=== PATIENT | female | born 1960 | race Caucasian/White ===

== ENCOUNTER → 2018-09-11 | Outpatient (CLI) | payer OTHER ==
--- NOTE | 2018-09-11 14:49 | NUR ---
MBSS COMPLETED. -S/S OF ASPIRATION. RECOMMEND REGULAR TEXTURE, THIN LIQUIDS;PILLS WHOLE WITH LIQUIDS. GI CONSULT. PATIENT INFORMATION: Pt IS A 58 YEAR OLD FEMALE REFERRED FOR AN MBSS SECONDARY TO RECENT CHOKING EPISODE. PT REPORTS THAT SHE HAD A CHOKING EPISODE IN JUNE THAT WAS FOLLOWED BY CO. PT REPORTS THAT SHE HAD SINCE HAD ANOTHER EPISODE WITH ALMONDS. PT REPORTS NO OTHER MEDICAL HISTORY. MBSS INTERPRETATION: SWALLOW FUNCTION AND EFFICIENCY WITHIN FUNCTIONAL LIMITS. ORAL MOTOR STRENGTH, COORDINATION, AND ROM WITHIN FUNCTIONAL LIMITS. LARYNGEAL ELEVATION/EXCURSION STRONG WITH TIMELY PHARYNGEAL RESPONSE. NO OVERT SIGNS OR SYMPTOMS OF ASPIRATION PRESENT DURING MBSS. TRIALS: TRIAL #1: TSP PUREED: GOOD TRIAL #2: TSP PUDDING: GOOD TRIAL #3: TSP MIXED: GOOD TRIAL #4: COOKIE: GOOD TRIAL #5: CUP SIP THIN LIQUIDS: GOOD TRIAL #6: CUP SIP THIN LIQUIDS: GOOD RECOMMENDATIONS: 1. REGULAR TEXTURE, THIN LIQUIDS; PILLS WHILE WITH LIQUIDS. 2. COMPENSATORY STRATEGIES (PROPHYLAXIS): *SEATED AT 90 *AVOID SCATTERED FOODS G-CODES SWALLOWING: [id number] Addendum: 09/11/18 at 1457 by JOSIAH LUIS [facility] Amended: Links added.
== END | disposition home or self-care (01) ==
LOC: RAH 09:34
PROVIDERS: ATTEND Nurse Practitioner Family
DX: R13.10 Dysphagia, unspecified (principal)
CPT/HCPCS: 74230; 92611

== ENCOUNTER 2023-02-07 15:45 | Emergency (ER) | payer OTHER ==
[~2023-02-07] VITALS: Ht 165.1 cm; Wt 58.1 kg
[2023-02-07 18:53] LABS: BASOPHILS # (AUTO) 0.02 K/uL (0.00-0.20); BASOPHILS % (AUTO) 0.5 % (0.0-5.0); EOSINOPHILS # (AUTO) 0.07 K/uL (0.00-0.70); EOSINOPHILS % (AUTO) 1.9 % (0.0-8.0); HEMATOCRIT 34.9 % (36-48); LYMPHOCYTES # (AUTO) 1.5 K/uL (1.0-4.8); MEAN CORPUSCULAR HEMOGLOBIN 32.7 pg (27.0-33.0); MEAN CORPUSCULAR HGB CONC 34.7 g/dL (32.0-36.0); MEAN CORPUSCULAR VOLUME 94.3 fL (79-99); MONOCYTES # (AUTO) 0.4 K/uL (0.1-1.0); MONOCYTES % (AUTO) 10.6 % (3.0-13.0); NEUTROPHILS # (AUTO) 1.7 K/uL (1.8-7.7); PLATELET COUNT (AUTO) 216 K/uL (130-400); RED CELL DISTRIBUTION WIDTH 12.4 % (11.0-15.5); WHITE BLOOD COUNT (AUTO) 3.8 K/uL (4.8-10.8)
[2023-02-07 18:59] LABS: APPEARANCE,URINE CLEAR (CLEAR); BILIRUBIN,URINE NEGATIVE (NEGATIVE); COLOR,URINE LIGHT-YELLOW (YELLOW); GLUCOSE, URINE (UA) NEGATIVE (NEGATIVE); KETONES,URINE NEGATIVE (NEGATIVE); LEUKOCYTE ESTERASE ,URINE NEGATIVE Leu/uL (NEGATIVE); NITRATE,URINE NEGATIVE (NEGATIVE); OCCULT BLOOD,URINE NEGATIVE (NEGATIVE); PH,URINE 6.5 (5.0-8.0); PROTEIN,URINE NEGATIVE (NEGATIVE); UROBILINOGEN,URINE 0.2 mg/dL (0.2-1.0)
[2023-02-07 19:03] LABS: CREATININE 0.9 mg/dL (0.5-1.5); POTASSIUM 3.9 mmol/L (3.5-5.1)
[2023-02-07] MEDS ORDERED: IOHEXOL-350 75 ML VIAL IV ONE (19:29)
[2023-02-07 19:31] LABS: ADD UA MICROSCOPIC NO
[2023-02-07 20:44] VITALS: BP 129/73; PULSE 62; RESP 18; O2SAT 98
== END 2023-02-07 20:44 | disposition home or self-care (01) ==
LOC: EDH 15:45
DX: K40.90 Unilateral inguinal hernia, without obstruction or gangrene, not specified as recurrent (principal); K59.00 Constipation, unspecified; Z98.890 Other specified postprocedural states; Z88.8 Allergy status to other drugs, medicaments and biological substances
CPT/HCPCS: 99285; 74178; 80048; 85025; 81003; 36415; Q9967